=== PATIENT | male | born 1970 | race Caucasian/White ===

== ENCOUNTER → 2021-06-16 | Day surgery (SDC) | payer OTHER ==
[~2021-06-16] VITALS: Ht 180.3 cm; Wt 93.0 kg
[~2021-06-16] MED LIST: CENTRUM SILVER1 EAC2 PO; LIPITOR 10MG TA10 MG PO
== END | disposition home or self-care (01) ==
LOC: FAS 06:14
DX: Z12.11 Encounter for screening for malignant neoplasm of colon (principal); D12.0 Benign neoplasm of cecum; D12.3 Benign neoplasm of transverse colon; K57.30 Diverticulosis of large intestine without perforation or abscess without bleeding; I10 Essential (primary) hypertension; E78.5 Hyperlipidemia, unspecified; F17.200 Nicotine dependence, unspecified, uncomplicated; Z80.0 Family history of malignant neoplasm of digestive organs; Z83.71 Family history of colonic polyps; Z72.89 Other problems related to lifestyle
CPT/HCPCS: J2704; J7120

== ENCOUNTER 2021-08-17 08:25 | Emergency (ER) | payer OTHER | END 2021-08-17 10:28 | disposition home or self-care (01) | LOC: FER 08:25 | DX: N50.82 Scrotal pain (principal); R10.2 Pelvic and perineal pain; F17.210 Nicotine dependence, cigarettes, uncomplicated | CPT/HCPCS: 76870 ==